=== PATIENT | male | born 1990 | race Caucasian/White ===

== ENCOUNTER 2020-07-21 06:15 | Emergency (ER) | payer OTHER ==
[~2020-07-21] VITALS: Ht 177.8 cm; Wt 81.6 kg
[2020-07-21 06:18] VITALS: BP 136/100
--- NOTE | 2020-07-21 06:18 | NUR ---
TO BED #05 BIBA WITH C/O NEEDLE STICK, NO ACTIVE BLEEDING NOTED.
--- NOTE | 2020-07-21 06:33 | NUR ---
30 Y/O MALE BIBA C/O NEEDLE STICK ON HIS RIGHT HAND, NEAR HIS THUMB WHILE HE WAS AT WORK. NO BLEEDING NOTED TO THE AREA. NO REDNESS OR TENDERNESS TO THE AREA. PT DENIES PAIN. CMS INTACT. PMH;DENIES NKA
--- NOTE | 2020-07-21 07:49 | NUR ---
Dr Fairchild at [facility] examining patient.
[2020-07-21 08:24] VITALS: BP 136/100
--- NOTE | 2020-07-21 08:24 | NUR ---
Patient discharged with v/s stable. Written and verbal after care instructions given and explained. Patient alert, oriented and verbalized understanding of instructions. Ambulatory with steady gait. All questions addressed prior to discharge. ID band removed. Patient advised to follow up with PMD. Rx of TRUVADA given. Patient educated on indication of medication including possible reaction and side effects. Opportunity to ask questions provided and answered.
[2020-07-22 08:09] LABS: HEPATITIS B CORE AB TOTAL Negative (Negative); HEPATITIS B SURFACE ANTIBODY Reactive (.); HEPATITIS B SURFACE ANTIGEN Negative (Negative); HEPATITIS C VIRUS ANTIBODY <0.1 s/co ratio (0.0-0.9)
== END 2020-07-21 08:24 | disposition home or self-care (01) ==
LOC: MED 06:15
DX: S60.551A Superficial foreign body of right hand, initial encounter (principal); R03.0 Elevated blood-pressure reading, without diagnosis of hypertension; W46.0XXA Contact with hypodermic needle, initial encounter; Y93.89 Activity, other specified; Y92.89 Other specified places as the place of occurrence of the external cause; Y99.8 Other external cause status
CPT/HCPCS: 36415; 86704; 86706; 86803; 87340; 90471; 90715; 99283